=== PATIENT | male | born 1965 | race Caucasian/White ===

== ENCOUNTER → 2022-05-22 09:40 | Outpatient (BNVA) | payer MEDICAID, SELFPAY | PROVIDERS: Visit Provider Nurse Practitioner Family | DX: G47.00 Insomnia, unspecified (principal); M54.50 Low back pain, unspecified; M19.90 Unspecified osteoarthritis, unspecified site; Z12.5 Encounter for screening for malignant neoplasm of prostate | CPT/HCPCS: 80053; 80061; G0103 ==

== ENCOUNTER 2025-06-20 11:37 | Emergency (ER) | payer SELFPAY ==
[2025-06-20 11:47] VITALS: BP 214/102; PULSE 53; RESP 16; TEMP 36.4; O2SAT 97
--- NOTE | 2025-06-20 12:27 | ED_ITS ---
HPI - Abdominal Pain 2 General: Chief Complaint: Abdominal Pain Stated Complaint: abd pain, nausea Time Seen by Provider: 06/20/25 12:27 History of Present Illness: 59-year-old man with no known chronic me dical problems who presents to the emergency room with epigastric abdominal pain. Visit radiates over to the right side. He is quite tender to palpation. Says the pain started after he ate a deer last night. He does still have his gallbladder. Has had some nausea but no vomiting. Related Data Previous Rx's ?Medication ?Instructions ?Recorded cetirizine 10 mg tablet (Zyrtec) 10 mg PO DAILY 90 day s #90 tabs 09/25/22 naproxen 500 mg tablet 500 mg PO BID PRN pain #60 t abs 12/11/22 tizanidine 4 mg capsule 4 mg PO TID PRN muscle spast icity 12/11/22 #90 caps famotidine 40 mg tablet 40 mg PO DAILY #30 tabs 06/03 03/27 hydrocodone 5 mg-acetaminophen 325 1 tab PO Q8H PRN pa in #14 tabs 06/20/25 mg tablet ondansetron 8 mg disintegrating 8 mg PO Q6H #14 tabs 1 08/20/24 tablet Allergies Allergy/AdvReac Type Severity Reaction Status Date / Time No Known Allergies Allergy Verified 09/25/22 15:49 Review of Systems 2 Narrative: Constitutional symptoms: Negative except as documented in HPI. Skin symptoms: Negative except as documented in HPI. Eye symptoms: Negative except as documented in HPI. ENMT symptoms: Negative except as documented in HPI. Respiratory symptoms: Negative except as documented in HPI. Cardiovascular symptoms: Negative except as documented in HPI. Gastrointestinal symptoms: Negative except as documented in HPI. Genitourinary symptoms: Negative except as documented in HPI. Musculoskeletal symptoms: Negative except as documented in HPI. Neurologic symptoms: Negative except as documented in HPI. Psychiatric symptoms: Negative except as documented in HPI. Endocrine symptoms: Negative except as documented in HPI. PFSH ED 2 PFSH: Social History Smoking and tobacco/nicotine status: never used tobacco/nicotine Alcohol intake: never Marital status: Physical Exam 2 Narrative: EXAM NARRATIVE: General: Alert, no acute distress. Skin: Warm, dry. Head: Normocephalic, atraumatic. Neck: Supple, trachea midline. Eye: Extraocular movements are intact. Ears, nose, mouth and throat: mucosa moist. Cardiovascular: Regular, Normal peripheral perfusion. Respiratory: Lungs are clear to auscultation, respirations are non-labored, breath sounds are equal, Symmetrical chest wall expansion. Gastrointestinal: Soft, quite tender in the epigastric and right upper quadrant area, Non distended Musculoskeletal: Normal ROM, no deformity. Neurological: Alert and oriented, No focal neurological deficit observed. Psychiatric: Cooperative, appropriate mood & affect. Course 2 Vital Signs: Vital signs: Vital Signs Temperature 97.6 F 06/20/25 11:47 Pulse Rate 79 06/20/25 16:55 Respiratory Rate 16 06/20/25 16:55 Blood Pressure 168/107 06/20/25 16:55 Pulse Oximetry 95 06/20/25 16:55 Oxygen Delivery Me thod Room Air 06/20/25 15:59 MDM - Abdominal Pain Medical Decision Making Medical decision making Patient's reason for coming to the emergency room: Abdominal pain. 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 I reviewed the patient's medical record. Patient's last visit to primary care was family practice with a muscle strain back in I reviewed the patient's current home meds Patient takes no chronic medications Alternate historians: None Differential diagnosis including but not limited to and based on the above HPI, review of systems and physical exam: In this patient with epigastric pain differential would include cholelithiasis or cholecystitis. Hepatitis. Diverticulitis. Constipation. UTI. colitis. small bowel obstruction. Crohn's flare. pancreatitis. gastritis. peptic ulcer. also concern for acute cardiac event. Orders placed to evaluate differential diagnosis based on the above differential, HPI and physical exam EKG: Time 1233. Rate 51. Sinus bradycardia, No ST-T changes, no ectopy, normal VA & QRS intervals, This was reviewed and interpreted by myself the ER physician at 1237 Lab Review: Laboratory results were reviewed and interpreted by myself the emergency room physician. No leukocytosis. No anemia. No renal failure. Lipase is negative. Troponin negative. Urinalysis negative for infection. Drug screen positive for opiates, likely from Dilaudid I gave him and marijuana. CT of the abdomen pelvis with contrast: No acute findings in the abdomen or pelvis. This was reviewed and interpreted by myself the emergency room physician. I also reviewed the radiology report. Assessment of risk: Level of risk: Moderate risk patient. Undiagnosed hypertension. Treating this here and I will have him follow with his PCP as this may be more related to his pain today. Reexamination: Patient's pain has returned some. We are giving some Dilaudid prior to discharge. I discussed findings. He will return to the emergency room if things worsen. Assessment and plan: Abdominal pain Hypertension ?Multiple doses of Dilaudid. Zofran. - Discharged home - Discussed plan with patient. Answered any questions. - Evaluation and treatment of this problem were appropriate in the emergency setting. Lab Data 06/20/25 12:42 06/20/25 12:42 Labs/Radiology: Radiology Impressions Abdomen/Pelvis CT 06/20/25 12:43 IMPRESSION: No acute findings in the abdomen or pelvis. Laboratory Results WBC 8.33 10^3/uL (3.29-11.43) 06/20/25 12:42 RBC 5.00 10^6/uL (3.85-5.65) 06/20/25 12:42 Hgb 15.50 g/dL (11.27-16.99) 06/20/25 12:42 Hct 45.5 % (37-53) 06/20/25 12:42 MCV 91.0 fl (82-101) 06/20/25 12:42 MCH 31.0 pg (27-33) 06/20/25 12:42 MCHC 34.1 g/dL (30-55) 06/20/25 12:42 RDW 14.1 % (12.1-15.1) 06/20/25 12:42 Plt Count 264 10^3/cmm (157-399) 06/20/25 12:42 MPV 9.3 fL (7.4-10.4) 06/20/25 12:42 Neut % (Auto) 71.3 % 06/20/25 12:42 Lymph % (Auto) 20.5 % 06/20/25 12:42 King % (Auto) 6.6 % 06/20/25 12:42 Eos % (Auto) 1.2 % 06/20/25 12:42 Baso % (Auto) 0.2 % 06/20/25 12:42 Neut # (Auto) 5.93 10^3/uL (1.8-7.7) 06/20/25 12:42 Lymph # (Auto) 1.7 10^3/uL (0.8-4.8) 06/20/25 12:42 King # (Auto) 0.6 10^3/uL (0.2-0.9) 06/20/25 12:42 Eos # (Auto) 0.1 10^3/uL (0.0-0.8) 06/20/25 12:42 Baso # (Auto) 0.0 10^3/uL (0.0-0.1) 06/20/25 12:42 Nucleated RBC % (auto) 0 % 06/20/25 12:42 Nucleated RBCs # 0.0 /100WBC 06/20/25 12:42 Sodium 141 mmol/L (136-145) 06/20/25 12:42 Potassium 4.1 mmol/L (3.5-5.1) 06/20/25 12:42 Chloride 101 mmol/L (98-107) 06/20/25 12:42 Carbon Dioxide 25 mmol/L (22-29) 06/20/25 12:42 Anion Gap 19.1 (5-19) H 06/20/25 12:42 BUN 17 mg/dL (8-23) 06/20/25 12:42 Creatinine 0.8 mg/dL (0.7-1.2) 06/20/25 12:42 GFR Calculation 98.6 mL/min (90-130) 06/20/25 12:42 Glucose 106 mg/dL (65-115) 06/20/25 12:42 Calculated Osmolality 294 mOsm/kg (285-295) 06/20/25 12:42 Lactic Acid 1.2 mmol/L (0.5-2.2) 06/20/25 12:42 Calcium 10.3 mg/dL (8.5-10.5) 06/20/25 12:42 Total Bilirubin 0.4 mg/dL (0.15-1.2) 06/20/25 12:42 AST 20 U/L (0-40) 06/20/25 12:42 ALT 27 U/L (0-41) 06/20/25 12:42 Alkaline Phosphatase 94 U/L (40-130) 06/20/25 12:42 Troponin T Baseline < 6 ng/L (0-15) 06/20/25 12:42 C-Reactive Protein 3.8 mg/L (0.0-4.9) 06/20/25 12:42 Total Protein 7.4 g/dL (6.6-8.7) 06/20/25 12:42 Albumin 4.8 g/dL (3.5-5.2) 06/20/25 12:42 Globulin 2.6 g/dL (1.3-4.6) 06/20/25 12:42 Lipase 25 U/L (13-60) 06/20/25 12:42 Urine Color Yellow (Yellow) 06/20/25 13:06 Urine Appearance Turbid (CLEAR) A 06/20/25 13:06 Urine pH 8.5 (5-7) A 06/20/25 13:06 Ur Specific [place] 1.013 (1.005-1.030) 06/20/25 13:06 Urine Protein Negative (Negative) 06/20/25 13:06 Urine Glucose (UA) Negative (Normal) 06/20/25 13:06 Urine Ketones 1+ (Negative) H 06/20/25 13:06 Urine Blood Negative (Negative) 06/20/25 13:06 Urine Nitrate Negative (Negative) 06/20/25 13:06 Urine Bilirubin Negative (Negative) 06/20/25 13:06 Urine Urobilinogen 1.0 mg/dL (Negative) 06/20/25 13:06 Ur Leukocyte Esterase Negative (Negative) 06/20/25 13:06 Urine RBC 0-2 /hpf (0-2) 06/20/25 13:06 Urine WBC 0-5 /hpf (0-5) 06/20/25 13:06 Ur Squamous Epith Cells 0-5 /hpf (0-5) 06/20/25 13:06 Amorphous Sediment Not Reportable 06/20/25 13:06 Urine Bacteria None seen /hpf (NONE) 06/20/25 13:06 Hyaline Casts 0.40 /lpf 06/20/25 13:06 Urine Opiates Screen Positive ng/mL (Negative) H 06/20/25 13:06 Ur Barbiturates Screen Negative ng/mL (Negative) 06/20/25 13:06 Ur Phencyclidine Scrn Negative ng/mL (Negative) 06/20/25 13:06 Ur Amphetamines Screen Negative ng/mL (Negative) 06/20/25 13:06 U Benzodiazepines Scrn Negative ng/mL (Negative) 06/20/25 13:06 Urine Cocaine Screen Negative ng/mL (Negative) 06/20/25 13:06 U Marijuana (THC) Screen Positive ng/mL (Negative) H 06/20/25 13:06 All radiology interpretation(s) finalized by discharge Discharge Plan Discharge Patient Disposition: Home Clinical Impression: Abdominal pain, Hypertension Condition: Stable Prescriptions: New famotidine 40 mg tablet 40 mg PO DAILY Qty: 30 0RF hydrocodone-acetaminophen 5-325 mg tablet 1 tab PO Q8H PRN (Reason: pain) Qty: 14 0RF Rx Instructions: Take 1/2 to 1 tab every 8 hours as needed for pain ondansetron 8 mg tablet,disintegrating 8 mg PO Q6H Qty: 14 0RF Rx Instructions: Take 1/2-1 tab every 6 hours as needed for nausea and vomiting No Action tizanidine 4 mg capsule 4 mg PO TID PRN (Reason: muscle spasticity) Qty: 90 0RF naproxen 500 mg tablet 500 mg PO BID PRN (Reason: pain) Qty: 60 0RF Rx Instructions: Take with food cetirizine [Zyrtec] 10 mg tablet 10 mg PO DAILY 90 Days Qty: 90 1RF Discharge Orders: Discharge ED (Routine); Ordered 06/20/25 Ordered By: Anne-Marie Braxton Discharge Diet: Advance as tolerated Discharge Activity: Increase activity as tolerated Patient Instructions: Abdominal Pain (ED), Opioid Safety, Pain Management, Patient Portal & Mariah Instructions Activity Restrictions/Additional Instructions: You need to follow-up with your primary doctor about your elevated blood pressure and about this problem in the very near future. Thank you for choosing [facility] for your healthcare needs today. You have been screened and evaluated and felt safe for discharge. Health conditions do change or evolve sometimes and as such it is important that you follow up with your Primary Doctor to be re checked, 3-5 days is a general good time frame for follow up. You are always welcome to return to the ED for re assessment if your symptoms are worsening or you have new concerns Print Language: Greenlandic Coding Level of Care Code ED Independent Consultant for Latasha Guardado
--- NOTE | 2025-06-20 12:33 | ECG_ITS ---
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 Measurements Intervals [place] Rate: 51 P: 62 CA: 160 QRS: 35 QRSD: 90 T: 36 QT: 499 QTc: 464 Interpretive Statements SINUS BRADYCARDIA PROLONGED QT INTERVAL No previous ECG available for comparison Electronically Signed On 06-21-2025 08:51:59 DEVICE PROCESSING ENGINEER by Althea Cherry M.D. [email or web address] [id number]
--- NOTE | 2025-06-20 12:43 | CTR_ITS ---
PROCEDURE INFORMATION: Exam: CT Abdomen And Pelvis With Contrast Exam date and time: 06/20/2025 3:20 PM Age: 59 years old Clinical indication: Abdominal pain. TECHNIQUE: Imaging protocol: Computed tomography of the abdomen and pelvis with contrast. Radiation optimization: All CT scans at this facility use at least one of these dose optimization techniques: automated exposure control; mA and/or kV adjustment per patient size (includes targeted exams where dose is matched to clinical indication); or iterative reconstruction. Contrast material: [id number]; Contrast volume: 100 ml; Contrast route: INTRAVENOUS (IV); Other contrast: Oral, [id number]; COMPARISON: No relevant prior studies available. RADIATION DOSE METRICS: Total DLP (mGy-cm): 325.3 FINDINGS: Liver: Normal. No mass. Gallbladder and biliary ducts: Gallbladder unremarkable. No significant biliary ductal dilatation. Pancreas: Normal. No ductal dilation. Spleen: Normal. No splenomegaly. Adrenal glands: Normal. No mass. Kidneys and ureters: No suspicious renal lesions. No hydronephrosis or nephrolithiasis. No ureteral stones. Stomach and bowel: Normal caliber of the bowel without evidence of obstruction. No focal bowel wall thickening or inflammation. Appendix: Not visualized with certainty. No inflammatory changes adjacent to the cecum. Intraperitoneal space: Unremarkable. No free air. No significant fluid collection. Vasculature: Atherosclerotic calcifications of the abdominal aorta without aneurysm. Lymph nodes: Unremarkable. No enlarged lymph nodes. Urinary bladder: Urinary bladder unremarkable. Reproductive: No significant prostatic abnormalities. Bones/joints: No significant focal osseous lesions. No fractures or malalignment. Soft tissues: Unremarkable. CT/CT abdomen pelvis w con* [id number] IMPRESSION: No acute findings in the abdomen or pelvis.
[2025-06-20] MEDS: HYDROmorphone 0.5 MG/0.5 ML INJ 1 MG IVP ×2 (12:47→16:30)
[2025-06-20 12:52] VITALS: BP 205/107; PULSE 77; RESP 17; O2SAT 96
[2025-06-20 12:55] LABS: Hematocrit 45.5 % (37-53); Hemoglobin 15.50 g/dL (11.27-16.99); Mean Corpuscular HGB Conc 34.1 g/dL (30-55); Mean Corpuscular Hemoglobin 31.0 pg (27-33); Mean Corpuscular Volume 91.0 fl (82-101); Nucleated Red Blood Cells % 0 %; Platelet Count 264 10^3/cmm (157-399); Red Blood Count 5.00 10^6/uL (3.85-5.65); White Blood Count 8.33 10^3/uL (3.29-11.43)
[2025-06-20 13:08] VITALS: BP 196/120; PULSE 62; RESP 16; O2SAT 98
[2025-06-20 13:16] LABS: Glucose Urine UA Negative (Normal); Nitrate Urine Negative (Negative); Specific Gravity, Urine 1.013 (1.005-1.030)
[2025-06-20 13:19] LABS: Troponin(5th) Baseline < 6 ng/L (0-15)
[2025-06-20 13:22] LABS: Alanine Aminotransferase 27 U/L (0-41); Albumin Level 4.8 g/dL (3.5-5.2); Alkaline Phosphatase 94 U/L (40-130); Anion Gap 19.1 (5-19); Aspartate Amino Transferase 20 U/L (0-40); Blood Urea Nitrogen 17 mg/dL (8-23); Calcium 10.3 mg/dL (8.5-10.5); Carbon Dioxide 25 mmol/L (22-29); Chloride 101 mmol/L (98-107); Creatinine Clr Calc Pharmacy 94.7994; Globulin 2.6 g/dL (1.3-4.6); Glucose 106 mg/dL (65-115); Lipase 25 U/L (13-60); Osmolality Calculated 294 mOsm/kg (285-295); Potassium 4.1 mmol/L (3.5-5.1); Sodium 141 mmol/L (136-145); Total Protein 7.4 g/dL (6.6-8.7)
[2025-06-20 13:23] LABS: PCP Screen Urine Negative (Negative)
[2025-06-20 13:25] LABS: Lactic Sepsis W/Reflex 1.2 mmol/L (0.5-2.2)
[2025-06-20 14:00] VITALS: BP 192/109; PULSE 58; RESP 14; O2SAT 91
[2025-06-20] MEDS: iohexol 350 mg/mL 500 mL Btl (per mL) PO (14:17)
--- NOTE | 2025-06-20 14:51 | ECG_ITS ---
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 Measurements Intervals [place] Rate: 56 P: 53 AL: 123 QRS: 36 QRSD: 97 T: 49 QT: 462 QTc: 448 Interpretive Statements SINUS BRADYCARDIA POSSIBLE RIGHT VENTRICULAR CONDUCTION DELAY [RSR (QR) IN V1/V2] Compared to ECG 06/20/2025 12:33:01 Prolonged QT interval no longer present Electronically Signed On 06-22-2025 00:09:26 SENIOR ASSOCIATE by Althea Cherry M.D. [id number] [email or web address]
[2025-06-20] MEDS: iohexol 350 mg/mL 500 mL Btl (per mL) IV (15:22)
[2025-06-20 15:59] VITALS: BP 214/120; PULSE 51; RESP 16; O2SAT 96
[2025-06-20] MEDS: hyDRALAzine 20 mg/mL INJ 1 mL 10 MG IVP (16:29)
[2025-06-20] MEDS: ondansetron 2 mg/ML SDV 2 mL 4 MG IVP (16:39)
[2025-06-20 16:55] VITALS: BP 168/107; PULSE 79; RESP 16; O2SAT 95
== END 2025-06-20 17:05 | disposition home or self-care (01) ==
PROVIDERS: Emergency Provider Emergency Medicine
DX: R10.13 Epigastric pain (principal); I10 Essential (primary) hypertension
CPT/HCPCS: 74177; 80053; 80306; 81001; 83605; 83690; 84484; 85025; 86140; 93005; 96374; 96375; 96376; 99285; J0360; J1171; J2405